=== PATIENT | female | born 1950 | race Caucasian/White ===

== ENCOUNTER 2019-07-19 13:18 | Outpatient (CLI) | payer MEDICARE, BC ==
--- NOTE | 2019-07-19 14:19 | ULT ---
Bilateral renal ultrasound CLINICAL INDICATION: Chronic kidney disease. COMPARISON: None FINDINGS: Right kidney: There is no evidence of a renal mass, renal calculus, or hydronephrosis seen. The right kidney measures 12.4 cm x 4.9 cm. Left kidney: There is an anechoic exophytic cystic lesion seen in the midportion right kidney measuri ng 1.9 cm demonstrating sonographic characteristics most compatible with a small renal cyst. No hydronephrosis or renal calculus is appreciated on the left.The left kidney measures 4.4 cm x 5.2 cm. Urinary bladder: Incompletely distended but otherwise grossly normal in appearance. IMPRESSION: 1. Findings most compatible with a cyst small left renal cyst. 2. The right kidney demonstrates a normal sonographic appearance. There is no evidence of hydronephro sis bilaterally
--- NOTE | 2019-07-19 14:26 | BD ---
DEXA BONE DENSITY STUDY: HISTORY: Postmenopausal. FINDINGS: Lumbar Spine: BMD (g/cm2) L1 0.963 T-Score: -0.2 L2 1.009 T-Score: -0.2 L3 0.917 T-Score: -1.5 L4 0.951 T-Score: -1.0 L1-L4 0.957 T-Score: -0.8 Femoral Neck: 0.717 T-Score: -1.2 Total Femur: 1.141 T-Score: +1.6 Impression: 1. Osteopenia of the left femoral neck and normal bone mineral density of the lumbar spine. 2. Ten-year fracture risk of major osteoporotic fracture is 8.4% and of a hip fracture 0.8%. These fracture probabilities were calculated for an untreated patient. POS: [facility]
== END 2019-07-19 13:19 | disposition home or self-care (01) ==
LOC: BICMAMMO 13:18
PROVIDERS: ATTEND Internal Medicine
DX: Z13.820 Encounter for screening for osteoporosis (principal); N18.3 Chronic kidney disease, stage 3 (moderate); M85.852 Other specified disorders of bone density and structure, left thigh; Z78.0 Asymptomatic menopausal state
CPT/HCPCS: 76770; 77080

== ENCOUNTER 2019-08-15 09:28 | Outpatient (CLI) | payer MEDICARE, BC ==
--- NOTE | 2019-08-15 10:53 | CT ---
CT ABDOMEN AND PELVIS WITH AND WITHOUT CONTRAST: CLINICAL HISTORY: Hematuria. COMPARISON: March 2008. FINDINGS: Punctate, nonobstructing urolithiasis is present at the lower pole of the left kidney. Parapelvic cys t formation of the left kidney is similar appearing and there is a stable appearance of extrarenal pelvis of the right kidney. Small parenchymal hypodensity of the right kidney is too small to further characterize. No enhancing renal lesion visualized. By delayed phase imaging, no obvious focal filling defect of the contrast opacified portions of the urinary collection system. Note is made that the majority of the left urete r is unopacified, which does therefore limit its evaluation in this regard. There is a focal calcification of the left hemipelvis which does appear to reside just external to the distal, nondila kait left ureter. This area does not contrast opacify by delayed phase imaging, and thus does limit evaluation in this regard. No focal filling defect of the contrast opacified portions of the mildly d istended urinary bladder. Multiple colonic diverticula are present. Diminished attenuation of the hepatic parenchyma suggests f atty infiltration. Wall prominence of the under-distended stomach is present, particularly proximally, incompletely assessed on the basis of this exam. There are splenic granulomatous calcific ations. No evidence of adrenal mass or focal pancreatic lesion evident. There is scattered vascular disease. Mild subpleural lung base opacities could relate to atelectasis or interstitial lung disease . Correlate clinically. There is a mild sized hiatal hernia. IMPRESSION: 1. Nonobstructive left nephrolithiasis. 2. No enhancing renal lesion. 3. Additional details are described above. Transcribed Date/Time: 08/15/2019 11:11 AM
== END 2019-08-15 09:29 | disposition home or self-care (01) ==
LOC: BICCT 09:28
PROVIDERS: ATTEND Internal Medicine
DX: R31.0 Gross hematuria (principal); N20.0 Calculus of kidney; R91.8 Other nonspecific abnormal finding of lung field; K44.9 Diaphragmatic hernia without obstruction or gangrene
CPT/HCPCS: 74178

== ENCOUNTER 2021-08-01 13:26 | Outpatient (CLI) | payer MEDICARE, BC | END 2021-08-01 13:27 | disposition home or self-care (01) | LOC: BICMAMMO 13:26 | PROVIDERS: ATTEND Internal Medicine | DX: Z12.31 Encounter for screening mammogram for malignant neoplasm of breast (principal); Z13.820 Encounter for screening for osteoporosis; Z78.0 Asymptomatic menopausal state; M85.89 Other specified disorders of bone density and structure, multiple sites | CPT/HCPCS: 77063; 77067; 77080 ==

== ENCOUNTER 2021-12-24 10:19 | Outpatient (CLI) | payer MEDICARE, BC | END 2021-12-24 10:20 | disposition home or self-care (01) | LOC: BICRAD 10:19 | PROVIDERS: ATTEND Internal Medicine | DX: M25.562 Pain in left knee (principal) ==

== ENCOUNTER 2021-12-24 14:19 | Outpatient (CLI) | payer MEDICARE, BC | END 2021-12-24 14:20 | disposition home or self-care (01) | LOC: ULT 14:19 | PROVIDERS: ATTEND Internal Medicine | DX: M79.605 Pain in left leg (principal) ==

== ENCOUNTER 2021-12-26 10:01 | Outpatient (CLI) | payer MEDICARE, BC | END 2021-12-26 10:02 | disposition home or self-care (01) | LOC: SCSMRI 10:01 | PROVIDERS: ATTEND Internal Medicine | DX: M25.462 Effusion, left knee (principal); M25.562 Pain in left knee; S83.242A Other tear of medial meniscus, current injury, left knee, initial encounter ==

== ENCOUNTER 2022-05-08 09:05 | Outpatient (CLI) | payer MEDICARE, BC ==
[2022-05-08] MEDS ORDERED: Iopamidol-370 76% 500 ML 1 ML ONE (14:35)
== END 2022-05-08 09:06 | disposition home or self-care (01) ==
LOC: BICCT 09:05
PROVIDERS: ATTEND Internal Medicine
DX: N39.0 Urinary tract infection, site not specified (principal); I31.3 Pericardial effusion (noninflammatory); K44.9 Diaphragmatic hernia without obstruction or gangrene; K57.30 Diverticulosis of large intestine without perforation or abscess without bleeding
CPT/HCPCS: 74178; Q9967

== ENCOUNTER 2022-09-11 11:14 | Outpatient (CLI) | payer MEDICARE, BC | END 2022-09-11 11:15 | disposition home or self-care (01) | LOC: BICMAMMO 11:14 | PROVIDERS: ATTEND Internal Medicine | DX: Z12.31 Encounter for screening mammogram for malignant neoplasm of breast (principal) | CPT/HCPCS: 77063; 77067 ==

== ENCOUNTER 2023-09-21 14:19 | Outpatient (CLI) | payer MEDICARE | END 2023-09-21 14:20 | disposition home or self-care (01) | LOC: BICMAMMO 14:19 | PROVIDERS: ATTEND Internal Medicine | DX: Z12.31 Encounter for screening mammogram for malignant neoplasm of breast (principal); Z13.820 Encounter for screening for osteoporosis; Z78.0 Asymptomatic menopausal state; M85.89 Other specified disorders of bone density and structure, multiple sites | CPT/HCPCS: 77063; 77067; 77080 ==